=== PATIENT | female | born 1950 | race American Indian/Alaskan Native ===

== ENCOUNTER 2017-03-07 08:05 | Observation (INO) | payer OTHER ==
--- NOTE | 2017-03-07 08:55 | ED PDOC ---
HPI: Chest Pain Time Seen by Provider: 03/07/17 08:11 Chief Complaint (Nursing): Chest Pain Chief Complaint (Provider): Chest Pain History Per: Patient History/Exam Limitations: no limitations Onset/Duration Of Symptoms: Days (x1 week) Current Symptoms Are (Timing): Constant Associated Symptoms: denies: Nausea Additional Complaint(s): Ashley Tirado, a 66 year old female, presents to the ED complaining of constant chest pain x1 week. The patient states that the pain radiates down her left arm , is much worse with movement and is associated with minimal shortness of breath. . She reports that she was seen at [facility] where she was told that it was chest wall pain. The patient states that she went back a second time and she was prescribed napercin and course of antibiotics without relief. Patient reports that she was seen at urgent care today and they sent her to the ED. Patient reports she has never had this pain before. Denies nausea , vomiting, fever, cough. Past Medical History Reviewed: Historical Data, Nursing Documentation, Vital Signs Vital Signs: Last Vital Signs Temp 98.4 F 03/07/17 08:13 Pulse 80 03/07/17 10:47 Resp 19 03/07/17 10:47 BP 146/70 03/07/17 10:47 Pulse Ox 98 03/07/17 10:47 - Medical History PMH: HTN - Surgical History Surgical History: No Surg Hx - Family History Family History: States: Unknown Family Hx - Social History Current smoker - smoking cessation education provided: Yes - Home Medications Home Medications: Ambulatory Orders Medication Instructions Recorded Ergocalciferol (Vitamin D2) 1 cap PO QWK 03/07/17 [Vitamin D2] Esomeprazole Magnesium [Nexium] 40 mg PO DAILY 03/07/17 Metoprolol Tartrate [Lopressor] 25 mg PO DAILY 03/07/17 amLODIPine [Norvasc] 5 mg PO DAILY 03/07/17 oxyCODONE [oxyCODONE Immediate 10 mg PO TID PRN 03/07/17 Release Tab] - Allergies Allergies/Adverse Reactions: Allergies Allergy/AdvReac Type Severity Reaction Status Date / Time No Known Allergies Allergy Verified 03/07/17 08:23 Review of Systems Constitutional: Negative for: Fever Cardiovascular: Positive for: Chest Pain (radiates down left shoulder and arm) Respiratory: Positive for: Shortness of Breath (minimal shortness of breath). Negative for: Cough Gastrointestinal: Negative for: Vomiting Physical Exam - Reviewed Nursing Documentation Reviewed: Yes Vital Signs Reviewed: Yes - Physical Exam Appears: Positive for: Non-toxic (Tearful moderate distress) Head Exam: Positive for: ATRAUMATIC, NORMAL INSPECTION, NORMOCEPHALIC Skin: Positive for: Normal Color, Warm, Dry. Negative for: Rash Eye Exam: Positive for: Normal appearance, EOMI, PERRL ENT: Positive for: Normal ENT Inspection Neck: Positive for: Normal, Painless ROM, Supple Cardiovascular/Chest: Positive for: Regular Rate, Rhythm. Negative for: Chest Non Tender (Tenderness to left midsternal chest wall.) Respiratory: Positive for: Normal Breath Sounds. Negative for: Rales, Rhonchi, Wheezing, Respiratory Distress Gastrointestinal/Abdominal: Positive for: Normal Exam, Bowel Sounds, Soft. Negative for: Tenderness, Guarding, Rebound Back: Positive for: Normal Inspection. Negative for: L CVA Tenderness, R CVA Tenderness Extremity: Positive for: Normal ROM. Negative for: Tenderness, Pedal Edema, Deformity, Swelling Neurologic/Psych: Positive for: Alert, Oriented - Laboratory Results Result Diagrams: 03/07/17 08:54 03/07/17 08:54 - ECG O2 Sat by Pulse Oximetry: 99 (RA) Pulse Ox Interpretation: Normal Medical Decision Making Medical Decision Makin Initial Impression: 66 year old female presenting with chest pain Initial Plan: * EKG * CMP * Troponin * Udip * CBC * D-dimer * PTT * Prothrombin * CXR * Morphine 2mg IV * Urinalysis * Reevaluation Scribe Attestation Documented by Karon Christie acting as a scribe for Ashley Barakat MD. Provider Attestation All medical record entries made by the Scribe were at my direction and personally dictated by me. I have reviewed the chart and agree that the record accurately reflects my personal performance of the history, physical exam, medical decision making, and the department course for this patient. I have also personally directed, reviewed, and agree with the discharge instructions and disposition. Disposition - Clinical Impression Clinical Impression: Chest pain, UTI (urinary tract infection) - Patient ED Disposition Is Patient to be Admitted: Yes - Disposition Disposition Time: 13:38 Condition: STABLE Forms: [facility] (Setswana) - Pt Status Changed To: Hospital Disposition Of: Observation - POA Present On Arrival: None
[2017-03-07 09:00] LABS: BASO # 0.1 K/uL (0.0-0.2); BASO % 1.2 % (0.0-2.0); EOS # 0.5 K/uL (0.0-0.7); HEMATOCRIT 44.8 % (34.0-47.0); LYMPH # 2.5 K/uL (1.0-4.3); LYMPH % 20.1 % (20.0-40.0); MEAN CELL VOLUME 87.8 fl (81.0-99.0); MEAN CORPUSCULAR HEMOGLOBIN 27.9 pg (27.0-31.0); MEAN CORPUSCULAR HGB CONC 31.8 g/dL (33.0-37.0); MEAN PLATELET VOLUME 9.8 fl (7.2-11.7); MONO # 0.7 K/uL (0.0-0.8); MONO % 5.4 % (0.0-10.0); NEUT # 8.7 K/uL (1.8-7.0); NEUT % 69.3 % (50.0-75.0); RED CELL DISTRIBUTION WIDTH 13.8 % (11.5-14.5); WHITE BLOOD COUNT 12.5 K/uL (4.8-10.8)
[2017-03-07 09:11] LABS: PARTIAL THROMBOPLASTIN TIME 27.4 Seconds (25.6-37.1)
[2017-03-07 09:15] LABS: ALB/GLOB RATIO 1.2 (1.0-2.1); ALKALINE PHOSPHATASE 90 U/L (38-126); ALT/SGPT 18 U/L (9-52); AST/SGOT 22 U/L (14-36); BILIRUBIN,TOTAL 1.1 mg/dl (0.2-1.3); BLOOD UREA NITROGEN 8 mg/dl (7-17); CALCIUM 9.9 mg/dL (8.4-10.2); CARBON DIOXIDE 28 mmol/L (22-30); CHLORIDE 105 mmol/L (98-107); GFR AFRICAN-AMERICAN > 60; GLUCOSE,RANDOM 100 mg/dL (65-105); SODIUM 144 mmol/l (132-148); TOTAL PROTEIN 7.3 G/DL (6.3-8.2)
--- NOTE | 2017-03-07 09:56 | RAD ---
HISTORY: Chest pain COMPARISON: No prior. FINDINGS: LUNGS: The lungs are well inflated and clear. PLEURA: No significant pleural effusion identified, no pneumothorax apparent. CARDIOVASCULAR: Normal. OSSEOUS STRUCTURES: No significant abnormalities. VISUALIZED UPPER ABDOMEN: Normal. OTHER FINDINGS: None. IMPRESSION: No active pulmonary disease.
[2017-03-07 10:55] LABS: RBC URINE 5 /hpf (0-3); URINE BACTERIA RARE (<OCC); URINE BILIRUBIN NEGATIVE (NEGATIVE); URINE BLOOD SMALL (NEGATIVE); URINE COLOR YELLOW (YELLOW); URINE GLUCOSE (UA) NEG (Normal); URINE KETONE NEGATIVE (NEGATIVE); URINE LEUKOCYTE ESTERASE MOD Leu/uL (Negative); URINE PROTEIN 30 mg/dL (NEGATIVE); URINE UROBILINOGEN 0.2-1.0 mg/dL (0.2-1.0); WBC URINE 15 /hpf (0-5)
[2017-03-07] MEDS ORDERED: Sodium Chloride 0.9% 50 ML IV ONE (11:12)
[2017-03-07] MEDS ORDERED: Iodixanol 320 MG/ML 100 ML BOTTLE IV ONE (11:12)
--- NOTE | 2017-03-07 11:17 | CARD ---
APPROVED REPORT EKG Measurement Heart [id number] <Conclusion> Normal sinus rhythm Possible Left atrial enlargement Poor R wave progression V1 to V4 Abnormal ECG
--- NOTE | 2017-03-07 12:50 | CT ---
PROCEDURE: CT Chest with contrast (Pulmonary Angiogram) HISTORY: L chest pain COMPARISON: None available. TECHNIQUE: Axial computed tomography images were obtained of the chest in the pulmonary arterial phase of enhancement. Coronal and sagittal reformatted images were created and reviewed. Intravenous contrast dose: 90 mL Visipaque 320 Radiation dose: Total exam DLP = 407.67 mGy-cm. This CT exam was performed using one or more of the following dose reduction techniques: Automated exposure control, adjustment of the mA and/or kV according to patient size, and/or use of iterative reconstruction technique. FINDINGS: PULMONARY ARTERIES: Unremarkable. No pulmonary embolism. AORTA: No acute findings. No thoracic aortic aneurysm. LUNGS: Unremarkable. No nodule, mass or pulmonary consolidation. PLEURAL SPACES: Unremarkable. No effusion or pneuomothorax. HEART: Unremarkable. No cardiomegaly. No significant pericardial effusion. LYMPH NODES: No lymphadenopathy. BONES, CHEST WALL: Unremarkable. No fracture or destructive lesion OTHER FINDINGS: Left adrenal nodule, 1.3 cm greatest dimension. Right adrenal nodule, 2.4 cm greatest dimension. Likely adrenal adenomas. Left adrenal nodule measures -5 Hounsfield units. Right adrenal nodule measures 35 Hounsfield units. Please note that this measurement of 35 Hounsfield units is obtained postcontrast study and is not meaningful in isolation. The left adrenal nodule attenuation is significant and is consistent with adrenal adenoma, despite the presence of intravenous contrast administration IMPRESSION: No evidence of pulmonary embolism. Incidental bilateral adrenal nodules, most likely adrenal adenomas. No other significant abnormality
[2017-03-07] MEDS ORDERED: cefTRIAXone (Rocephin) 1 gm Inj ONE (13:48)
--- NOTE | 2017-03-07 14:53 | CP.PCM.HP ---
<Alix Valdivia - Last Filed: 03/07/17 14:46> History of Present Illness - History of Present Illness History of Present Illness: 66 y/o F with PMHx of HTN, Vitamin D deficiency, Lumbar disc herniation who presents to ED c/o left sided chest pain since the last week. Patient states that pain is intermittent, has been gradually increasing in intensity, radiates to left arm and her back, very mild alleviated with pain relief patches/cream and previous prescribed naproxen ( which she just took once yesterday night), aggravating with deep inspiration and movements . Denies fevers, chills, cough, N/V, abdominal pain, diarrheas, dizziness, palpitations. PMD: Dr. Quintana in [place] SHx: Cholecystectomy, B/L carpal tunnel syndrome Allergies: NKDA Social: heavy smoker: 1 packx 30 years,denies etoh and recreational drugs Present on Admission - Present on Admission Any Indicators Present on Admission: No History of DVT/PE: No History of Uncontrolled Diabetes: No Urinary Catheter: No Decubitus Ulcer Present: No Review of Systems - Review of Systems All systems: reviewed and no additional remarkable complaints except (as per HPI ) Past Patient History - Past Social History Smoking Status: Light Smoker < 10 Cigarettes Daily - CARDIAC Hx Hypertension: Yes - PSYCHIATRIC Hx Substance Use: No - ANESTHESIA Hx Anesthesia: No Meds Allergies/Adverse Reactions: Allergies Allergy/AdvReac Type Severity Reaction Status Date / Time No Known Allergies Allergy Verified 03/07/17 08:23 Physical Exam - Constitutional Additional comments: crying due to pain - ENT Exam ENT Exam: Mucous Membranes Moist - Respiratory Exam Respiratory Exam: Clear to Auscultation Bilateral, NORMAL BREATHING PATTERN - Cardiovascular Exam Cardiovascular Exam: REGULAR RHYTHM, +S1, +S2 - GI/Abdominal Exam GI & Abdominal Exam: Normal Bowel Sounds, Soft. absent: Distended, Firm, Guarding, Tenderness - Extremities Exam Extremities exam: Positive for: normal inspection. Negative for: calf tenderness, pedal edema - Neurological Exam Neurological exam: Alert, Oriented x3 - Skin Skin Exam: Dry, Intact, Normal Color - Additional Findings Additional findings: chest wall tenderness to palpation, no rashes noted Results - Vital Signs Recent Vital Signs: Last Vital Signs Temp 98.4 F 03/07/17 08:13 Pulse 86 03/07/17 14:41 Resp 19 03/07/17 14:41 BP 160/80 H 03/07/17 13:57 Pulse Ox 98 03/07/17 14:41 - Labs Result Diagrams: 03/07/17 08:54 03/07/17 08:54 Assessment & Plan - Assessment and Plan (Free Text) Assessment: 66 y/o obese F with HTN, admitted with chest pain to r/o ACS. Plan: Chest pain pain reproduced with palpation, could be 2/2 costochondritis, but patient with risk factors: HTN, obesity, smoker we need to r/o cardiac etiology -admit to telemetry -f/u troponin I x 2 c/w aspirin 81 mg start Toradol 15 IV Q 6 hours X 2 doses, and consider c/w NSAIDs consider statin therapy f/u lipid profile, HgbA1C f/u drug screen test Cardiology consulted, f/u recommendations EKG in ED did not showed acute ST/T wave changes CXR showed no active disease Chest CT showd no evidence of PE HTN -re-assume home Metoprolol Tartrate 25 mg BID PO -amlodipine 5 mg daily f/u BP UTI -Nitrate pos, WBC 15, RBC 5 c/w rocephin 2 gm IV daily consider PO if DC on abx f/u UCx DVT prophylaxis SCDs for now - Date & Time Date: 03/07/17 Time: 14:20 <Rickey Noland - Last Filed: 03/14/17 17:18> Results - Vital Signs Recent Vital Signs: Last Vital Signs Temp 98.5 F 03/09/17 08:34 Pulse 88 03/09/17 09:00 Resp 20 03/09/17 08:34 BP 123/62 03/09/17 08:39 Pulse Ox 98 03/09/17 08:34 - Labs Result Diagrams: 03/09/17 08:55 03/07/17 08:54 Assessment & Plan - Assessment and Plan (Free Text) Assessment: Patient was personally seen and examined by me in rounds with residents. Available labs and diagnostic data reviewed. Case, Patient's condition and management plan Discussed with residents in rounds. Agree with resident's progress note. Plan: As ordered.
[2017-03-07 15:47] VITALS: BMI 35.4
[2017-03-07 16:18] LABS: CHOLESTEROL 181 mg/dL (0-199)
[2017-03-08] MEDS: Pantoprazole 40 mg EC Tab PO SCH (08:18)
--- NOTE | 2017-03-08 08:26 | CP.PCM.PN ---
<TusharkamlavelleAlix - Last Filed: 03/08/17 11:36> Subjective - Date & Time of Evaluation Date of Evaluation: 03/08/17 Time of Evaluation: 07:30 - Subjective Subjective: patient seen and examined with attending still c/o left sided chest pain radiating to left arm, shoulder and back Pain is relief with Toradol IV Denies SOB, N/V, dizziness, abd pain, tremors, palpitations or other associated symptoms afebrile, VS reviewed this morning WNL Objective - Vital Signs/Intake and Output Vital Signs (last 24 hours): Temp Pulse Resp BP Pulse Ox 99 F 73 20 122/63 100 03/08/17 04:45 03/08/17 04:45 03/08/17 04:45 03/08/17 04:45 03/08/17 04:45 - Medications Medications: Current Medications Amlodipine Besylate (Norvasc) 5 mg PO DAILY [facility] Aspirin (Aspirin Chewable) 81 mg PO DAILY [facility] Atorvastatin Calcium (Lipitor) 10 mg PO DAILY [facility] Last Admin: 03/07/17 21:37 Dose: 10 mg Ceftriaxone Sodium 1 gm/ (Sodium Chloride) 100 mls @ 100 mls/hr IVPB DAILY [facility] Ketorolac Tromethamine (Toradol) 15 mg IVP Q6 [facility] Stop: 03/08/17 16:31 Last Admin: 03/08/17 03:33 Dose: 15 mg Metoprolol Tartrate (Lopressor) 25 mg PO Q12 [facility] Last Admin: 03/07/17 21:43 Dose: 25 mg Naproxen (Naproxen) 500 mg PO Q12 [facility] Pantoprazole Sodium (Protonix Ec Tab) 40 mg PO DAILY [facility] - Labs Labs: PT 10.9 Seconds (9.8-13.1) 03/07/17 08:54 INR 1.1 (0.9-1.2) 03/07/17 08:54 APTT 27.4 Seconds (25.6-37.1) 03/07/17 08:54 - Additional Findings Additional findings: ENT Exam ENT Exam: Mucous Membranes Moist - Respiratory Exam Respiratory Exam: Clear to Auscultation Bilateral, NORMAL BREATHING PATTERN - Cardiovascular Exam Cardiovascular Exam: REGULAR RHYTHM, +S1, +S2 - GI/Abdominal Exam GI & Abdominal Exam: Normal Bowel Sounds, Soft. absent: Distended, Firm, Guarding, Tenderness - Extremities Exam Extremities exam: Positive for: normal inspection. Negative for: calf tenderness, pedal edema - Neurological Exam Neurological exam: Alert, Oriented x3 - Skin Skin Exam: Dry, Intact, Normal Color - Additional Findings Additional findings: chest wall tenderness to palpation, no rashes noted Assessment and Plan - Assessment and Plan (Free Text) Assessment: 66 y/o obese F with HTN, admitted with chest pain to r/o ACS. Plan: Chest pain pain reproduced with palpation and relief with NSAIDs, could be 2/2 costochondritis, but patient with risk factors: HTN, obesity, smoker we need to r/o cardiac etiology -f/u troponin I x 3 neg c/w aspirin 81 mg c/w Toradol 30 mg IV Q 6 hours for today , consider Naproxen 500 mg BID if clear for DC by cardiology c/w statin therapy lipid profile WNL f/u HgbA1C drug screen test positive x opiates f/u Cardiology recommendations EKG in ED did not showed acute ST/T wave changes CXR showed no active disease Chest CT showd no evidence of PE HTN controlled -re-assume home Metoprolol Tartrate 25 mg BID PO -amlodipine 5 mg daily f/u BP UTI -Nitrate pos, WBC 15, RBC 5 c/w rocephin 2 gm IV daily consider PO if DC on abx f/u UCx DVT prophylaxis lovenox 40 sc <Rickey Noland K - Last Filed: 03/14/17 17:22> Objective - Vital Signs/Intake and Output Vital Signs (last 24 hours): Temp Pulse Resp BP Pulse Ox 98.5 F 88 20 123/62 98 03/09/17 08:34 03/09/17 09:00 03/09/17 08:34 03/09/17 08:39 03/09/17 08:34 - Labs Labs: 03/09/17 08:55 PT 10.9 Seconds (9.8-13.1) 03/07/17 08:54 INR 1.1 (0.9-1.2) 03/07/17 08:54 APTT 27.4 Seconds (25.6-37.1) 03/07/17 08:54 Assessment and Plan - Assessment and Plan (Free Text) Assessment: Patient was personally seen and examined by me in rounds with residents. Available labs and diagnostic data reviewed. Case, Patient's condition and management plan Discussed with residents in rounds. Agree with resident's progress note. Plan: As ordered.
[2017-03-08] MEDS ORDERED: Naproxen 500 MG TAB PO SCH (09:00)
[2017-03-08] MEDS ORDERED: cefTRIAXone 2 GM in Sodium Chloride 0.9% 100 ML IVPB SCH (09:00)
[2017-03-08] MEDS: cefTRIAXone 1 GM in Sodium Chloride 0.9% 100 ML IVPB SCH (11:45)
[2017-03-08] MEDS: Enoxaparin 40 mg Syringe SC SCH (11:46)
--- NOTE | 2017-03-08 13:00 | CARD ---
APPROVED REPORT EXAM: Two-dimensional and M-mode echocardiogram with Doppler and color Doppler. Other Information Quality : GoodRhythm : NSR Technically limited study due to body habitus. INDICATION Chest Pain 2D DIMENSIONS IVSd1.60 (0.7-1.1cm)LVDd3.71 (3.9-5.9cm) LVOT Diameter2.36 (1.8-2.4cm)PWd1.24 (0.7-1.1cm) IVSs1.68 (0.8-1.2cm)LVDs2.38 (2.5-4.0cm) FS (%) 35.7 %PWs1.99 (0.8-1.2cm) M-Mode DIMENSIONS Left Atrium (MM)3.85 (2.5-4.0cm)IVSd1.85 (0.7-1.1cm) Aortic Root3.29 (2.2-3.7cm)LVDd4.12 (4.0-5.6cm) Aortic Cusp Exc.2.35 (1.5-2.0cm)PWd1.18 (0.7-1.1cm) IVSs2.24 cmFS (%) 44 % LVDs2.29 (2.0-3.8cm)PWs1.82 cm Mitral Valve MV E Xapfzllv28.7cm/sMV DECEL [id number] A Aufutcju39.2cm/s MV IRC70xlG/A ratio0.6MVA (PHT)2.29cm2 TDI Lateral E' Peak V9.70cm/sMedial E' Peak V4.48cm/sE/Lateral E'4.7 E/Medial E'10.2 Pulmonary Valve PV Peak Bnransqv62.1cm/s Tricuspid Valve TR Peak Fhutzpxt626ep/sRAP RJVBXFUK60jhPjXO Peak Gr.20mmHg [id number] LEFT VENTRICLE The left ventricle is normal in size. There is mild to moderate concentric left ventricular hypertrophy. The left ventricular function is normal. The left ventricular ejection fraction is - 70-75%. There is normal LV segmental wall motion. Transmitral Doppler flow pattern is Grade I-abnormal relaxation pattern. No left ventricle thrombus noted on this study. There is no ventricular septal defect visualized. There is no left ventricular aneurysm. There is no mass noted in the left ventricle. RIGHT VENTRICLE The right ventricle is normal size. There is normal right ventricular wall thickness. The right ventricular systolic function is normal. ATRIA The left atrium size is normal. There is no thrombus suspected in the left atrium. The right atrium size is normal. The interatrial septum is intact with no evidence for an atrial septal defect. AORTIC VALVE The aortic valve is normal in structure and function. There is mild aortic regurgitation. There is no aortic valvular stenosis. MITRAL VALVE The mitral valve is normal in structure and function. There is no evidence of mitral valve prolapse. There is no mitral valve stenosis. Mitral regurgitation is mild. TRICUSPID VALVE The tricuspid valve is normal in structure and function. There is moderate tricuspid regurgitation. Right ventricular systolic pressure is estimated at 30 mmHg. There is no tricuspid valve prolapse or vegetation. There is no tricuspid valve stenosis. PULMONIC VALVE The pulmonary valve is normal in structure and function. There is very trivial pulmonic valvular regurgitation. GREAT VESSELS The aortic root is normal in size. The IVC is normal in size and collapses >50% with inspiration. PERICARDIAL EFFUSION The pericardium appears normal. There is no pleural effusion. <Conclusion> The left ventricle is normal in size. There is mild to moderate concentric left ventricular hypertrophy. The left ventricular function is normal. The left ventricular ejection fraction is - 70-75%. The left atrium, right ventricle and right atrium are normal in size. The mitral, aortic and tricuspid valves are normal. There is mild mitral rgurgitation, mild aortic regurgitation and moderate tricuspid regurgitation.
--- NOTE | 2017-03-09 02:25 | CON ---
REASON FOR CONSULTATION: Chest pain. HISTORY OF PRESENT ILLNESS: The patient is 66-year-old -[place] female, who has a history of hypertension and who was a smoker, presents because of retrosternal chest that is sharp in nature, radiating to the left shoulder. The patient was evaluated [facility] and was discharged on steroids and the patient underwent cardiac catheterization by her telemetry technician at [place] one year ago and was told that she does not have any significant blockages, and required no intervention at that time. The patient is still experiencing severe chest pain since her admission. The patient denies any associated dizziness or syncope. When asked about , the patient stated that she is quite alert and yesterday was a hot humid day. PAST MEDICAL HISTORY: The patient had shingles in the back few years ago. HOME MEDICATIONS: Include amlodipine 5 mg once a day, Lopressor 25 mg once a day, Nexium 40 mg once a day, vitamin D and oxycodone. REVIEW OF SYSTEMS: No nausea, or vomiting. No fever or chills. INPATIENT MEDICATIONS: Include aspirin 81 mg once a day, Rocephin 1 g once daily, Lipitor 10 mg once a day, Lopressor 25 mg once a day, Lovenox 40 mg once a day, naproxen 500 mg orally twice a day, Norvasc 5 mg once a day, Protonix 40 mg once a day. PHYSICAL EXAMINATION: GENERAL: The patient is an elderly female who does not appear to be in any distress. VITAL SIGNS: Blood pressure 126/61, heart rate 80, temperature 99.1, and respirations 20. HEENT: Normocephalic. NECK: No JVD. CHEST: Clear. HEART: S1 and S2 regular. ABDOMEN: Soft. EXTREMITIES: No edema and no calf tenderness. LABORATORIES: CBC, WBC 12.5, hemoglobin 14.2, hematocrit 44.8, platelet count 183,000. Urine drug screen is positive for opiate. The patient is on oxycodone at home. SMA-7 is within normal limits. Three sets of troponins are negative. Lipid profile is within normal limits. PT, PTT and D-dimer are within normal limit. EKG revealed sinus rhythm, of 95, poor R-wave progression. Chest CT angio, no evidence of pulmonary embolus, left adrenal nodule, 1.3 cm at greatest dimension, right adrenal nodule 2.4 cm at greatest dimension, likely adrenal adenomas. ASSESSMENT: 1. Chest pain, myocardial infarction is ruled out. 2. Hypertension. 3. Bilateral adrenal nodules, most likely adrenal adenoma, rule out hyperaldosteronism. 4. Low-grade fever and leukocytosis. RECOMMENDATION: Continue aspirin, Lipitor, Lopressor, subcutaneous Lovenox, Norvasc, and prophylactic subcutaneous Lovenox. Schedule the patient for treadmill stress test. Familia Day MD
--- NOTE | 2017-03-09 08:31 | CP.PCM.PN ---
<Alix Valdivia - Last Filed: 03/09/17 08:25> Subjective - Date & Time of Evaluation Date of Evaluation: 03/09/17 Time of Evaluation: 07:15 - Subjective Subjective: patient seen and examined with attending still c/o left sided chest pain, but improved Denies SOB, N/V, abdominal pain, diarrheas had an uneventful night Afebrile, VS stable WNL Objective - Vital Signs/Intake and Output Vital Signs (last 24 hours): Temp Pulse Resp BP Pulse Ox 99 F 71 19 112/68 100 03/09/17 04:45 03/09/17 04:45 03/09/17 04:45 03/09/17 04:45 03/09/17 04:45 - Medications Medications: Current Medications Amlodipine Besylate (Norvasc) 5 mg PO DAILY [facility] Last Admin: 03/08/17 08:19 Dose: 5 mg Aspirin (Aspirin Chewable) 81 mg PO DAILY [facility] Last Admin: 03/08/17 08:19 Dose: 81 mg Atorvastatin Calcium (Lipitor) 10 mg PO DAILY [facility] Last Admin: 03/08/17 08:19 Dose: 10 mg Enoxaparin Sodium (Lovenox) 40 mg SC DAILY [facility] PRN Reason: Protocol Last Admin: 03/08/17 11:46 Dose: 40 mg Ceftriaxone Sodium 1 gm/ (Sodium Chloride) 100 mls @ 100 mls/hr IVPB DAILY [facility] Last Admin: 03/08/17 11:45 Dose: 100 mls/hr Metoprolol Tartrate (Lopressor) 25 mg PO Q12 [facility] Last Admin: 03/08/17 22:36 Dose: 25 mg Naproxen (Naproxen) 500 mg PO Q12 [facility] Last Admin: 03/08/17 08:18 Dose: 500 mg Pantoprazole Sodium (Protonix Ec Tab) 40 mg PO DAILY [facility] Last Admin: 03/08/17 08:18 Dose: 40 mg - Labs Labs: PT 10.9 Seconds (9.8-13.1) 03/07/17 08:54 INR 1.1 (0.9-1.2) 03/07/17 08:54 APTT 27.4 Seconds (25.6-37.1) 03/07/17 08:54 - Additional Findings Additional findings: ENT Exam ENT Exam: Mucous Membranes Moist - Respiratory Exam Respiratory Exam: Clear to Auscultation Bilateral, NORMAL BREATHING PATTERN - Cardiovascular Exam Cardiovascular Exam: REGULAR RHYTHM, +S1, +S2 - GI/Abdominal Exam GI & Abdominal Exam: Normal Bowel Sounds, Soft. absent: Distended, Firm, Guarding, Tenderness - Extremities Exam Extremities exam: Positive for: normal inspection. Negative for: calf tenderness, pedal edema - Neurological Exam Neurological exam: Alert, Oriented x3 - Skin Skin Exam: Dry, Intact, Normal Color - Additional Findings Additional findings: chest wall tenderness to palpation, no rashes noted Assessment and Plan - Assessment and Plan (Free Text) Assessment: 66 y/o obese F with HTN, admitted with chest pain to r/o ACS. Plan: Chest pain ACS ruled out pain reproduced with palpation and relief with NSAIDs, most likely costochondritis -f/u troponin I x 3 neg c/w aspirin 81 mg start Naproxen 500 mg BID c/w statin therapy lipid profile WNL drug screen test positive x opiates Cardiology recommendations: regular stress test today, because patient's risk factors: HTN, obesity, smoker EKG in ED did not showed acute ST/T wave changes CXR showed no active disease Chest CT showd no evidence of PE HTN controlled -re-assume home Metoprolol Tartrate 25 mg BID PO -amlodipine 5 mg daily f/u BP held morning metoprolol before stress test, light breakfast without coffee Pre-diabetes HgbA1C 6.1 c/w healthy diet UTI -Nitrate pos, WBC 15, RBC 5 c/w rocephin 2 gm IV daily consider PO if DC on abx f/u final UCx report: showed gram neg sunitha, most likely E-coli, f/u C&S DVT prophylaxis lovenox 40 sc <Noland,Rickey K - Last Filed: 03/14/17 17:25> Objective - Vital Signs/Intake and Output Vital Signs (last 24 hours): Temp Pulse Resp BP Pulse Ox 98.5 F 88 20 123/62 98 03/09/17 08:34 03/09/17 09:00 03/09/17 08:34 03/09/17 08:39 03/09/17 08:34 - Labs Labs: 03/09/17 08:55 PT 10.9 Seconds (9.8-13.1) 03/07/17 08:54 INR 1.1 (0.9-1.2) 03/07/17 08:54 APTT 27.4 Seconds (25.6-37.1) 03/07/17 08:54 Assessment and Plan - Assessment and Plan (Free Text) Assessment: Patient was personally seen and examined by me in rounds with residents. Available labs and diagnostic data reviewed. Case, Patient's condition and management plan Discussed with residents in rounds. Agree with resident's progress note. Plan: As ordered.
[2017-03-09 08:35] VITALS: BP 123/62; RESP 20; TEMP 98.5; O2SAT 98
[2017-03-09] MEDS: Enoxaparin 40 mg Syringe SC SCH (08:38)
[2017-03-09] MEDS: Pantoprazole 40 mg EC Tab PO SCH (08:38)
[2017-03-09] MEDS: cefTRIAXone 1 GM in Sodium Chloride 0.9% 100 ML IVPB SCH (08:40)
[2017-03-09] MEDS ORDERED: Naproxen 500 MG TAB PO SCH (09:00)
[2017-03-09 09:32] LABS: BASO % 0.3 % (0.0-2.0); EOS # 0.6 K/uL (0.0-0.7); EOS % 4.1 % (0.0-4.0); HEMATOCRIT 47.9 % (34.0-47.0); LYMPH # 2.9 K/uL (1.0-4.3); MEAN CELL VOLUME 90.4 fl (81.0-99.0); MEAN CORPUSCULAR HEMOGLOBIN 28.7 pg (27.0-31.0); MEAN CORPUSCULAR HGB CONC 31.8 g/dL (33.0-37.0); MEAN PLATELET VOLUME 10.1 fl (7.2-11.7); MONO # 0.7 K/uL (0.0-0.8); MONO % 4.7 % (0.0-10.0); NEUT # 10.5 K/uL (1.8-7.0); NEUT % 70.9 % (50.0-75.0); RED CELL DISTRIBUTION WIDTH 14.2 % (11.5-14.5); WHITE BLOOD COUNT 14.7 K/uL (4.8-10.8)
[2017-03-09 11:43] VITALS: PULSE 88
== END 2017-03-09 12:55 | disposition left against medical advice (07) ==
LOC: H.ER 08:05 → H.ERHOLD 13:32 → H.TEL 15:34
PROVIDERS: ADMIT Internal Medicine; ATTEND Internal Medicine
DX: R07.9 Chest pain, unspecified (principal); I10 Essential (primary) hypertension; F17.200 Nicotine dependence, unspecified, uncomplicated; E66.9 Obesity, unspecified; Z68.35 Body mass index [BMI] 35.0-35.9, adult; N39.0 Urinary tract infection, site not specified; B96.20 Unspecified Escherichia coli [E. coli] as the cause of diseases classified elsewhere; M51.26 Other intervertebral disc displacement, lumbar region; E55.9 Vitamin D deficiency, unspecified; E27.8 Other specified disorders of adrenal gland; D72.829 Elevated white blood cell count, unspecified; R73.03 Prediabetes
CPT/HCPCS: 36415; 71010; 71275; 80053; 80061; 80324; 80345; 80346; 80349; 80353; 80358; 80361; 81003; 83036; 83992; 84484; 85025; 85378; 85610; 85730; 87086; 87181; 93005; 93306; 96374; 99285; G0378; J0696; J1650; J1885; J2270; Q9967